=== PATIENT | female | born 1990 | race Caucasian/White ===

== ENCOUNTER 2017-06-02 14:43 | Emergency (ER) | payer OTHER ==
[~2017-06-02] VITALS: Ht 165.1 cm; Wt 79.2 kg
[2017-06-02 14:54] VITALS: Ht 165.1 cm; Wt 79.2 kg
[2017-06-02 16:05] LABS: ADD UMIC YES; UR ASCORBIC ACID NEGATIVE (NEGATIVE); UR BILIRUBIN (Dip) NEGATIVE (NEGATIVE); UR BLOOD (Dip) 3+ mg/dL (NEGATIVE); UR CLARITY CLOUDY (CLEAR); UR COLOR YELLOW (YELLOW); UR GLUCOSE (Dip) NEGATIVE (NEGATIVE); UR KETONES (Dip) NEGATIVE (NEGATIVE); UR LEUKOCYTE ESTERASE (Dip) 3+ Leu/ul (NEGATIVE); UR MUCUS FEW /HPF (NONE SEEN); UR NITRITE (Dip) NEGATIVE (NEGATIVE); UR RBC 18 /HPF (0-5); UR SPECIFIC GRAVITY (Dip) 1.025 (1.003-1.030); UR SQUAMOUS EPITHELIAL CELL MANY /HPF (FEW); UR TOTAL PROTEIN (Dip) 2+ mg/dl (NEGATIVE); UR UROBILINOGEN (Dip) NEGATIVE (NEGATIVE)
--- NOTE | 2017-06-02 16:19 | RADRPT ---
PROCEDURE: US Pelvis. CLINICAL INDICATION: pelvic pain TECHNIQUE: Multiple sonographic images of the pelvis were obtained utilizing a transabdominal and endovaginal technique. The images were reviewed on a PACS workstation. COMPARISON: None. FINDINGS: The uterus is normal in size with a normal appearance of the myometrium. The uterus measures 8.3 x 3.6 x 5.4 cm. The endometrial stripe is homogeneous in appearance and has the thickness of 4.3 mm. There is an IUD within the endometrium. The ovaries are normal in size and echogenicity. Normal Doppler flow is identified in both ovaries. The right ovary measures 3.7 x 2.7 x 2.8 cm. The left ovary measures 3.4 x 2.2 x 2.6 cm. There are bilateral ovarian cysts. There is a 1.9 cm simple cyst in the right ovary. There is a 1.4 cm simple cyst in the left ovary. No free fluid is present within the pelvis. RPTAT: AA IMPRESSION: Multiple bilateral ovarian follicles, measuring up to 1.9 cm in the right ovary. IUD within the endometrium. .Evaristo Olson MD, MD Date Time Electronically viewed and signed by .Evaristo Olson MD, MD on 06/02/2017 16:19 .S/
[2017-06-02] MEDS ORDERED: IBUP-1542 PO (16:35)
[2017-06-02] MEDS ORDERED: CEPH-443 PO (16:35)
--- NOTE | 2017-06-02 16:39 | ERD ---
ER Documentation Chief Complaint Chief Complaint abdominal pain x 3 weeks HPI This 27-year-old female complains of lower abdominal pain for last 3 weeks. She describes as being mostly in the left pelvic area but slightly on the right and suprapubic area. She possibly has some slight dysuria. She denies any vaginal discharge. She denies any fevers, vomiting, upper abdominal pain. Menstrual period was 1 week ago. She is regular. She has an IUD. ROS All systems reviewed and are negative except as per history of present illness. Medications Home Meds Active Scripts Cephalexin* (Keflex*) 500 Mg Capsule, 500 MG PO QID for 5 Days, CAP Prov:BALJINDER PERAZA MD 06/02/17 Ibuprofen* (Motrin*) 600 Mg Tab, 600 MG PO Q6, #15 TAB Prov:BALJINDER PERAZA MD 06/02/17 PMhx/Soc Medical and Surgical Hx: pt denies Medical Hx, pt denies Surgical Hx Hx Alcohol Use: No Hx Substance Use: No Hx Tobacco Use: No Smoking Status: Never smoker Physical Exam Vitals Vital Signs Date Time Temp Pulse Resp B/P Pulse Ox O2 Delivery O2 Flow Rate FiO2 06/02/17 14:54 98.0 84 18 116/61 98 Physical Exam Const: [], [id number]-mlieedlog. Head: Atraumatic Eyes: Normal Conjunctiva ENT: Normal External Ears, Nose and Mouth. Neck: Full range of motion..~ No meningismus. Resp: Clear to auscultation bilaterally Cardio: Regular rate and rhythm, no murmurs Abd: Soft, suprapubic tenderness and left lower quadrant tenderness. No tenderness at McBurney's point no Barragan sign. non distended. Normal bowel sounds. Bimanual exam with the assistance of a forensic science technician shows no cervical motion tenderness and no adnexal tenderness or masses which appears focal. Skin: No petechiae or rashes Back: No midline or flank tenderness Ext: No cyanosis, or edema Neur: Awake and alert Psych: Normal Mood and Affect Results 24 hrs Laboratory Tests Test 06/02/17 15:44 Urine Color YELLOW Urine Clarity CLOUDY Urine pH 7.0 Urine Specific [place] 1.025 Urine Ketones NEGATIVEmg/dL Urine Nitrite NEGATIVEmg/dL Urine Bilirubin NEGATIVEmg/dL Urine Urobilinogen NEGATIVEmg/dL Urine Leukocyte Esterase 3+Evelin/ul Urine Microscopic RBC 18/HPF Urine Microscopic WBC 150/HPF Urine Squamous Epithelial Cells MANY/HPF Urine Mucus FEW/HPF Urine Hemoglobin 3+mg/dL Urine Glucose NEGATIVEmg/dL Urine Total Protein 2+mg/dl Current Medications Medications (Trade) Dose Ordered Sig/Mart Route PRN Reason Start Time Stop Time Status Last Admin Dose Admin Cephalexin (Keflex) 500 mg ONCE ONCE PO 06/02/17 17:00 06/02/17 17:01 UNV Ibuprofen (Motrin) 600 mg ONCE ONCE PO 06/02/17 17:00 06/02/17 17:01 UNV Procedures/MDM Urine shows positive white blood cells and leukocyte esterase and bacteria. Negative nitrites. Urine was sent for gonorrhea and chlamydia. HCG is negative. Pelvic ultrasound shows multiple follicles without evidence of torsion, tubo-ovarian abscess or additional abnormalities. She was given Keflex 500 mg by mouth for signs of urinary tract infection. Patient presents with lower abdominal or pelvic pain left greater than right last 2 weeks of uncertain etiology. She has signs of UTI and will be treated for this. We will await treatment for cervicitis until laboratory results. Patient shows no signs or symptoms of appendicitis, tubo-ovarian abscess, sepsis , acute abdomen. She will be treated with Keflex and ibuprofen and primary care follow-up and return precautions. The patient was stable with no new complaints during the ER course. Clinically, there is no current evidence to suggest meningitis, sepsis, acute abdomen, pneumonia, acute coronary syndrome, pulmonary embolism, or any other emergent condition appearing to require further evaluation or hospitalization. The patient should certainly return for any new or worsening symptoms per the aftercare instructions. They should otherwise follow-up with her primary care doctor for reevaluation this week. Departure Diagnosis: Primary Impression: UTI (urinary tract infection) Urinary tract infection type: acute cystitis Hematuria presence: without hematuria Qualified Code: N30.00 - Acute cystitis without hematuria Additional Impression: Pelvic pain Condition: Stable Patient Instructions: Understanding Urinary Tract Infections (UTIs), Pelvic Pain, Unknown Cause Additional Instructions: ORINA TIENE INFECCION. ULTRSONIDO TIENE MUCHOS CYSTES . Cheque otro vez con barrientos doctor primario en el proximo mccormick or regresa para mas o nueva simptomas. BALJINDER PERAZA MD Jun 02, 2017 16:39
[2017-06-02] MEDS ORDERED: CEPHALEXIN 500 MG CAP PO ONE (17:00)
[2017-06-02] MEDS ORDERED: IBUPROFEN 600 MG TAB PO ONE (17:00)
== END 2017-06-02 17:49 | disposition home or self-care (01) ==
LOC: FTE 14:43
DX: N30.00 Acute cystitis without hematuria (principal)
CPT/HCPCS: 76830; 76856; 81001; 87591; Z7502; Z7610